=== PATIENT | female | born 2000 | race Caucasian/White ===

== ENCOUNTER 2019-04-14 15:24 | Emergency (ER) | payer BC ==
[~2019-04-14] VITALS: Ht 170.2 cm; Wt 81.6 kg
[2019-04-14] MEDS ORDERED: LIDOCAINE 2% 20 ML VIAL. IJ ONE (15:45)
[2019-04-14] MEDS ORDERED: IV NORMAL SALINE 1000ML BAG 1,000 ML IV ONE (15:45)
--- NOTE | 2019-04-14 15:48 | PHYS DOC ---
Past Medical History Attending Signature I have participated in the care of this patient and I have reviewed and agree with all pertinent clinical information above including history, exam, and recommendations. (ROGERS SUE MD) Adult General Chief Complaint Chief Complaint: SYNCOPE HPI HPI Patient is a 19 year old female that was at work around 2:30 this afternoon and had a syncopal episode. The patient is unsure how long she passed out area the patient states that she's been feeling dizzy, nauseous, and having hot flashes since she woke up this morning. The patient states that since the syncopal episode she's had a headache and is light sensitive. The headache is located behind her right eye. She states that she did eat breakfast this morning and had sausage and aches for breakfast at 11:00 and states that she has been drinking fluids today. She rates the pain for her headache at 5 out of 10 in severity and throbbing. Reports her LMP was 2 weeks ago. (REJI ERAZO APRN) Review of Systems Review of Systems Constitutional: Denies fever or chills [] Eyes: Reports pain behind her R eye. HENT: Reports headache. Denies nasal congestion or sore throat [] Respiratory: Denies cough or shortness of breath [] Cardiovascular: No additional information not addressed in HPI [] GI: Denies abdominal pain, nausea, vomiting, bloody stools or diarrhea [] : Denies dysuria or hematuria [] Musculoskeletal: Denies back pain or joint pain [] Integument: Denies rash or skin lesions [] Neurologic: Denies headache, focal weakness or sensory changes [] Endocrine: Reports hot flashes. Denies polyuria or polydipsia [] Complete systems were reviewed and found to be within normal limits, except as documented in this note. (REJI ERAZO APRN) Current Medications Current Medications Current Medications Medications (Trade) Dose Ordered Sig/Jalen Start Time Stop Time Status Last Admin Dose Admin Diphenhydramine HCl (Benadryl) 25 mg 1X ONCE 04/14/19 17:00 04/14/19 17:01 DC 04/14/19 17:20 25 MG Ketorolac Tromethamine (Toradol 15mg Vial) 10 mg 1X STAT 04/14/19 16:54 04/14/19 16:56 DC 04/14/19 17:21 10 MG Lidocaine HCl 20 ml 1X ONCE 10/12/19 15:45 04/14/19 16:18 DC 04/14/19 16:50 20 ML Prochlorperazine Edisylate (Compazine) 10 mg 1X ONCE 04/14/19 17:00 04/14/19 17:01 DC 04/14/19 17:21 10 MG Sodium Chloride 1,000 ml @ 1,000 mls/hr 1X ONCE 04/14/19 15:45 04/14/19 16:44 DC 04/14/19 16:42 1,000 MLS/HR (ROGERS SUE MD) Allergies Allergies Allergies Coded Allergies Type Severity Reaction Last Updated Verified Penicillins Allergy Intermediate 04/14/19 Yes (ROGERS SUE MD) Physical Exam Physical Exam Constitutional: Well developed, well nourished, no acute distress, non-toxic appearance. [] HENT: Normocephalic, atraumatic, bilateral external ears normal, oropharynx moist, no oral exudates, nose normal. [] Eyes: PERRLA, EOMI, conjunctiva normal, no discharge. [] Neck: Normal range of motion, no tenderness, supple, no stridor. [] Cardiovascular:Heart rate regular rhythm, no murmur [] Lungs & Thorax: Bilateral breath sounds clear to auscultation [] Abdomen: Bowel sounds normal, soft, no tenderness, no masses, no pulsatile masses. [] Skin: Warm, dry, no erythema, no rash. [] Back: No tenderness, no CVA tenderness. [] Extremities: No tenderness, no cyanosis, no clubbing, ROM intact, no edema. [] Neurologic: Alert and oriented X 3, normal motor function, normal sensory funct ion, no focal deficits noted. [] Psychologic: Affect normal, judgement normal, mood normal. [] (REJI ERAZO APRN) Current Patient Data Vital Signs Vital Signs Date Time Temp Pulse Resp B/P (MAP) Pulse Ox O2 Delivery O2 Flow Rate FiO2 04/14/19 16:45 61 15 129/79 (96) 99 Room Air 04/14/19 15:30 98.9 98.9 (ROGERS SUE MD) Lab Values Laboratory Tests Test 04/14/19 15:37 04/14/19 16:05 POC Urine HCG, Qualitative Hcg negative (Negative) White Blood Count 8.7 x10^3/uL (4.0-11.0) Red Blood Count 4.38 x10^6/uL (3.50-5.40) Hemoglobin 12.9 g/dL (12.0-15.5) Hematocrit 38.1 % (36.0-47.0) Mean Corpuscular Volume 87 fL (79-100) Mean Corpuscular Hemoglobin 30 pg (25-35) Mean Corpuscular Hemoglobin Concent 34 g/dL (31-37) Red Cell Distribution Width 13.1 % (11.5-14.5) Platelet Count 271 x10^3/uL (140-400) Neutrophils (%) (Auto) 53 % (31-73) Lymphocytes (%) (Auto) 28 % (24-48) Monocytes (%) (Auto) 6 % (0-9) Eosinophils (%) (Auto) 12 % (0-3) H Basophils (%) (Auto) 1 % (0-3) Neutrophils # (Auto) 4.5 x10^3/uL (1.8-7.7) Lymphocytes # (Auto) 2.4 x10^3/uL (1.0-4.8) Monocytes # (Auto) 0.6 x10^3/uL (0.0-1.1) Eosinophils # (Auto) 1.0 x10^3/uL (0.0-0.7) H Basophils # (Auto) 0.1 x10^3/uL (0.0-0.2) Urine Collection Type Unknown Urine Color Yellow Urine Clarity Cloudy Urine pH 6.5 Urine Specific [place] 1.025 Urine Protein Negative mg/dL (NEG-TRACE) Urine Glucose (UA) Negative mg/dL (NEG) Urine Ketones (Stick) Negative mg/dL (NEG) Urine Blood Negative (NEG) Urine Nitrite Positive (NEG) Urine Bilirubin Negative (NEG) Urine Urobilinogen Dipstick 1.0 mg/dL (0.2 mg/dL) Urine Leukocyte Esterase Small (NEG) Urine RBC 3-5 /HPF (0-2) Urine WBC 1-4 /HPF (0-4) Urine Squamous Epithelial Cells Many /LPF Urine Amorphous Sediment Present /HPF Urine Bacteria Many /HPF (0-FEW) Urine Mucus Marked /LPF Sodium Level 142 mmol/L (136-145) Potassium Level 3.8 mmol/L (3.5-5.1) Chloride Level 104 mmol/L (98-107) Carbon Dioxide Level 26 mmol/L (21-32) Anion Gap 12 (6-14) Blood Urea Nitrogen 9 mg/dL (7-20) Creatinine 0.7 mg/dL (0.6-1.0) Estimated GFR (Cockcroft-Gault) 105.6 BUN/Creatinine Ratio 13 (6-20) Glucose Level 80 mg/dL (70-99) Calcium Level 9.2 mg/dL (8.5-10.1) Total Bilirubin 0.9 mg/dL (0.2-1.0) Aspartate Amino Transferase (AST) 12 U/L (15-37) L Alanine Aminotransferase (ALT) 11 U/L (14-59) L Alkaline Phosphatase 47 U/L (46-116) Troponin I Quantitative < 0.017 ng/mL (0.000-0.055) Total Protein 7.2 g/dL (6.4-8.2) Albumin 4.0 g/dL (3.4-5.0) Albumin/Globulin Ratio 1.3 (1.0-1.7) Thyroid Stimulating Hormone (TSH) 0.563 uIU/mL (0.358-3.74) Laboratory Tests 04/14/19 16:05 Laboratory Tests 04/14/19 16:05 (ROGERS SUE MD) EKG EKG EKG interpreted by Dr. Sue Sinus andre with rate of 59, No STEMI.[] (REJI ERAZO APRN) Radiology/Procedures Radiology/Procedures Placed 3 mL of lidocaine in R nostril. Headache reduced from 5 to 3/10. [facility] [address] [place] [address] IMAGING REPORT Signed PATIENT: COLTON GRIFFIN ACCOUNT: [id number] : 2000 LOCATION: ER AGE: 19 SEX: F EXAM STATUS: REG ER ORD. PHYSICIAN: REJI ERAZO APRN REASON: syncope, dizziness PROCEDURE: CHEST PA & LATERAL CHEST PA LATERAL Clinical indications: Syncope and dizziness. COMPARISON: None available. Findings: No acute lung infiltrate or pleural effusion or pulmonary edema or lung mass or pneumothorax is seen. The heart size, pulmonary vasculature, mediastinum and both dixie are unremarkable. The osseous structures appear intact. Impression: No acute radiographic abnormality is seen. Electronically signed by: Aydee Alcaraz MD (04/14/2019 4:27 PM) [facility] DICTATED and SIGNED BY: AYDEE ALCARAZ MD DATE: 04/14/19 384 (REJI ERAZO APRN) Course & Med Decision Making Course & Med Decision Making Pertinent Labs and Imaging studies reviewed. (See chart for details) Will get EKG, labs, Chest x-ray, and will also give supportive care. Will give intranasal lidocaine for headache, and will give fluids. Labs are unremarkable with the exception of leukocytes and bacteria in urine. Will place on Keflex. The rest of workup is unremarkable. Will have her follow up outpatient for further workup. (REJI ERAZO APRN) Dragon Disclaimer Dragon Disclaimer This electronic medical record was generated, in whole or in part, using a voice recognition dictation system. (REJI ERAZO APRN) Departure Departure Impression: Primary Impression: Syncope Additional Impressions: Urinary tract infection Headache Disposition: HOME, SELF-CARE Condition: STABLE Patient Instructions: Migraine Headache, Syncope, Urinary Tract Infection Additional Instructions: Thank you for visiting [facility]. We appreciate you trusting us with your care. If any additional problems come up don't hesitate to return to visit us. Please follow up with your primary care provider so they can plan additional care if needed and know about the problem that you had. If symptoms worsen come back to the Emergency Department. Any concerning symptoms that start such as chest pain, shortness of air, weakness or numbness on one side of the body, running high fevers or any other concerning symptoms return to the ER. You have been prescribed an antibiotic today to help fight your infection. Please take all of the antibiotic as directed. If after 48 hours the infection is not improving, please return for more care. If the infection worsens, return to ER for additional care. Scripts Cephalexin (KEFLEX) 500 Mg Capsule 1 CAP PO BID for 7 Days, #14 CAP 0 Refills Prov: REJI ERAZO APRN 04/14/19 Problem Qualifiers Primary Impression: Syncope Syncope type: unspecified Qualified Codes: R55 - Syncope and collapse Additional Impressions: Urinary tract infection Urinary tract infection type: acute cystitis Hematuria presence: without hematuria Qualified Codes: N30.00 - Acute cystitis without hematuria Headache Headache type: unspecified Headache chronicity pattern: acute headache Intractability: not intractable Qualified Codes: R51 - Headache REJI ERAZO APRN Apr 14, 2019 15:48 ROGERS SUE MD Apr 15, 2019 06:18
[2019-04-14 16:18] LABS: BASO # 0.1 x10^3/uL (0.0-0.2); BASO % 1 % (0-3); EOS % 12 % (0-3); HEMATOCRIT 38.1 % (36.0-47.0); HEMOGLOBIN 12.9 g/dL (12.0-15.5); LYMPH # 2.4 x10^3/uL (1.0-4.8); LYMPH % 28 % (24-48); MEAN CORPUSCULAR HEMOGLOBIN 30 pg (25-35); MEAN CORPUSCULAR HGB CONC 34 g/dL (31-37); MEAN CORPUSCULAR VOLUME 87 fL (79-100); MONO # 0.6 x10^3/uL (0.0-1.1); MONO % 6 % (0-9); NEUT # 4.5 x10^3/uL (1.8-7.7); NEUT % 53 % (31-73); PLATELET COUNT 271 x10^3/uL (140-400); RED BLOOD COUNT 4.38 x10^6/uL (3.50-5.40); RED CELL DISTRIBUTION WIDTH 13.1 % (11.5-14.5); WHITE BLOOD COUNT 8.7 x10^3/uL (4.0-11.0)
[2019-04-14 16:20] LABS: BILIRUBIN,URINE NEGATIVE (NEG); CLARITY,URINE CLOUDY; COLOR,URINE YELLOW; NITRITE,URINE POSITIVE (NEG); PH,URINE 6.5; PROTEIN,URINE NEGATIVE (NEG-TRACE)
[2019-04-14 16:26] LABS: SQUAMOUS EPITHELIAL CELL,UR MANY /LPF
[2019-04-14 16:27] LABS: BACTERIA,URINE MANY /HPF (0-FEW)
[2019-04-14 16:28] LABS: AMORPHOUS SEDIMENT,UR PRESENT /HPF; CALCIUM 9.2 mg/dL (8.5-10.1); CREATININE 0.7 mg/dL (0.6-1.0); GFR 105.6; POTASSIUM 3.8 mmol/L (3.5-5.1)
--- NOTE | 2019-04-14 16:30 | RAD ---
CHEST PA LATERAL Clinical indications: Syncope and dizziness. COMPARISON: None available. Findings: No acute lung infiltrate or pleural effusion or pulmonary edema or lung mass or pneumothorax is seen. The heart size, pulmonary vasculature, mediastinum and both dixie are unremarkable. The osseous structures appear intact. Impression: No acute radiographic abnormality is seen. Electronically signed by: Neeraj Alcaraz MD (04/14/2019 4:27 PM) [facility] [place]
[2019-04-14 16:35] LABS: ALBUMIN/GLOBULIN RATIO 1.3 (1.0-1.7); TOTAL BILIRUBIN 0.9 mg/dL (0.2-1.0); TOTAL PROTEIN 7.2 g/dL (6.4-8.2)
[2019-04-14 16:45] VITALS: BP 129/79
[2019-04-14] MEDS ORDERED: KETOROLAC 15 MG/ML VIAL. IV STA (16:54)
[2019-04-14] MEDS ORDERED: PROCHLORPERAZINE 10 MG/2 ML VIAL. IV ONE (17:00)
[2019-04-14] MEDS ORDERED: diphenhydrAMINE 50 MG/ML VIAL IVP ONE (17:00)
[2019-04-14] MEDS ORDERED: CEPH-264 PO (17:03)
--- NOTE | 2019-04-15 11:54 | EKG ---
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
== END 2019-04-14 17:30 | disposition home or self-care (01) ==
LOC: ER 15:24
DX: N30.00 Acute cystitis without hematuria (principal); R55 Syncope and collapse; R51 Headache; R42 Dizziness and giddiness; R11.0 Nausea; N95.1 Menopausal and female climacteric states; Z88.0 Allergy status to penicillin
CPT/HCPCS: 36415; 71046; 80053; 81001; 81025; 84443; 84484; 85025; 87086; 93005; 96361; 96374; 96375; 99285; J0780; J1200; J1885; J2001; J7030

== ENCOUNTER 2021-03-19 16:04 | Emergency (ER) | payer BC, OTHER ==
[~2021-03-19] VITALS: Ht 170.2 cm; Wt 105.0 kg
[~2021-03-19 16:04] MED LIST: CEPH-264 PO
[2021-03-19 16:36] LABS: BILIRUBIN,URINE SMALL (NEG); CLARITY,URINE CLOUDY; COLOR,URINE AMBER; NITRITE,URINE NEGATIVE (NEG); PROTEIN,URINE 100 mg/dL (NEG-TRACE)
[2021-03-19 16:51] LABS: BASO % 1 % (0-3); EOS % 1 % (0-3); HEMATOCRIT 38.4 % (36.0-47.0); LYMPH # 1.8 x10^3/uL (1.0-4.8); LYMPH % 23 % (24-48); MEAN CORPUSCULAR HEMOGLOBIN 29 pg (25-35); MEAN CORPUSCULAR HGB CONC 34 g/dL (31-37); MEAN CORPUSCULAR VOLUME 87 fL (79-100); MONO # 0.6 x10^3/uL (0.0-1.1); MONO % 8 % (0-9); NEUT # 5.3 x10^3/uL (1.8-7.7); NEUT % 68 % (31-73); PLATELET COUNT 303 x10^3/uL (140-400); RED BLOOD COUNT 4.42 x10^6/uL (3.50-5.40); RED CELL DISTRIBUTION WIDTH 13.3 % (11.5-14.5); WHITE BLOOD COUNT 7.8 x10^3/uL (4.0-11.0)
[2021-03-19 16:54] LABS: U PREG PATIENT NEGATIVE (NEG)
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
[2021-03-19 17:10] LABS: CALCIUM 8.8 mg/dL (8.5-10.1); CREATININE 0.7 mg/dL (0.6-1.0); GFR 103.7; POTASSIUM 3.7 mmol/L (3.5-5.1)
[2021-03-19 17:14] LABS: ALBUMIN 3.7 g/dL (3.4-5.0); ALBUMIN/GLOBULIN RATIO 1.1 (1.0-1.7); MAGNESIUM 1.7 mg/dL (1.8-2.4); TOTAL BILIRUBIN 1.4 mg/dL (0.2-1.0)
[2021-03-19 17:15] LABS: BACTERIA,URINE MANY /HPF (0-FEW); RBC,URINE 0 /HPF (0-2); WBC,URINE 20-40 /HPF (0-4)
[2021-03-19] MEDS ORDERED: CONTRAST GIVEN. MC PRN (17:15)
[2021-03-19] MEDS ORDERED: MORPHINE SULFATE 4 MG/ML INJ. IVP ONE (17:30)
[2021-03-19] MEDS ORDERED: IV NORMAL SALINE 1000ML BAG 1,000 ML IV ONE (17:30)
[2021-03-19] MEDS ORDERED: IOHEXOL 300 MG/ML 100ML VIAL. IV ONE (17:30)
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
[2021-03-19] MEDS ORDERED: MAGNESIUM SULFATE 2GM 50 ML IV ONE (18:15)
[2021-03-19] MEDS ORDERED: NAPR-682 PO (18:21)
[2021-03-19] MEDS ORDERED: SULF1TAB24 PO (18:21)
[2021-03-19 19:55] VITALS: BP 114/64
== END 2021-03-19 20:07 | disposition home or self-care (01) ==
LOC: ER 16:04
DX: S30.1XXA Contusion of abdominal wall, initial encounter (principal); S80.11XA Contusion of right lower leg, initial encounter; N39.0 Urinary tract infection, site not specified; F17.200 Nicotine dependence, unspecified, uncomplicated; Z88.0 Allergy status to penicillin; V49.49XA Driver injured in collision with other motor vehicles in traffic accident, initial encounter; Y93.I9 Activity, other involving external motion; Y92.89 Other specified places as the place of occurrence of the external cause; Y99.8 Other external cause status
CPT/HCPCS: 36415; 70450; 71260; 72125; 73590; 74177; 80053; 81001; 81025; 83735; 85025; 87086; 96361; 96365; 96366; 96375; 99285; J2270; J3475; J7030; Q9967

== ENCOUNTER 2021-03-27 22:45 | Emergency (ER) | payer SELFPAY ==
[~2021-03-27 22:45] MED LIST changes: +NAPR-682 PO; +SULF1TAB24 PO
== END 2021-03-28 01:01 | disposition left against medical advice (07) ==
LOC: ER 22:45
DX: R10.31 Right lower quadrant pain (principal); R31.9 Hematuria, unspecified; Z53.21 Procedure and treatment not carried out due to patient leaving prior to being seen by health care provider